=== PATIENT | female | born 1950 | race Caucasian/White ===

== ENCOUNTER 2017-09-03 11:38 | Outpatient (CLI) | payer MEDICARE | END 2017-09-03 11:39 | disposition home or self-care (01) | LOC: BICMAMMO 11:38 | PROVIDERS: ATTEND Family Medicine | DX: Z12.31 Encounter for screening mammogram for malignant neoplasm of breast (principal) | CPT/HCPCS: 77063; 77067 ==

== ENCOUNTER 2018-09-10 09:07 | Outpatient (CLI) | payer MEDICARE ==
--- NOTE | 2018-09-10 09:36 | MMO ---
Bilateral MAMMO Bilat Screen [facility]. CLINICAL HISTORY: Patient is 68 years old and is seen for screening. The patient has no family history of breast cancer. The patient has no personal history of cancer. VIEWS: The views performed were: bilateral craniocaudal with tomosynthesis and bilateral mediolateral oblique with tomosynthesis. FILMS COMPARED: The present examination has been compared to prior imaging studies performed at [facility] on 02/12/2016 and 09/03/2017, and at [facility] on 10/17/2005, 12/14/2008 and 12/12/2010. MAMMOGRAM FINDINGS: There are scattered fibroglandular densities. There are stable benign appearing calcifications seen in both breasts. There are no suspicious masses, suspicious calcifications, or new areas of architectural distortion. IMPRESSION: THERE IS NO MAMMOGRAPHIC EVIDENCE OF MALIGNANCY. A ROUTINE FOLLOW-UP MAMMOGRAM IN 1 YEAR IS RECOMMENDED. THE RESULTS OF THIS EXAM WERE SENT TO THE PATIENT. ACR BI-RADS Category 2 - Benign finding MAMMOGRAPHY NOTE: 1. A negative mammogram report should not delay a biopsy if a dominant of clinically suspicious mass is present. 2. Approximately 10% to 15% of breast cancers are not detected by mammography. 3. Adenosis and dense breasts may obscure an underlying neoplasm.
== END 2018-09-10 09:08 | disposition home or self-care (01) ==
LOC: BICMAMMO 09:07
PROVIDERS: ATTEND Family Medicine
DX: Z12.31 Encounter for screening mammogram for malignant neoplasm of breast (principal)
CPT/HCPCS: 77063; 77067

== ENCOUNTER 2018-11-11 10:33 | Day surgery (SDC) | payer MEDICARE ==
[2018-11-10 12:31] VITALS: BMI 32.1
[~2018-11-11 10:33] MED LIST: Cyclopentolate 1% Opth Drop 2 ML BOT R EYE SCH; Fluorouracil 100 MG, Enoxaparin Sodium 25 MG, EPINEPHrine 0.3 MG, Dextrose 50% 3 ML in ... IRR SCH; Phenylephrine 2.5% Ophth Soln 5 ML BOT R EYE SCH
[2018-11-11] MEDS ORDERED: Phenylephrine 2.5% Ophth Soln 5 ML BOT ONE (11:44)
[2018-11-11] MEDS ORDERED: Cyclopentolate 1% Opth Drop 2 ML BOT ONE (11:44)
[2018-11-11] MEDS ORDERED: PROPOFOL 20 ML ONE (13:15)
--- NOTE | 2018-11-11 20:14 | EKG ---
Test Reason : PREOP Blood Pressure : / mmHG Vent. Rate : 061 BPM Atrial Rate : 061 BPM P-R Int : 158 ms QRS Dur : 072 ms QT Int : 396 ms P-R-T Axes : 059 012 046 degrees QTc Int : 398 ms Normal sinus rhythm Normal ECG When compared with ECG of 12-OCT-2015 12:00, Questionable change in QRS axis Confirmed by FATOUMATA HAND, SReji ([id number]) on 11/11/2018 8:13:51 PM Referred By: CATALINA Confirmed By:DR. Americo HAM MD
--- NOTE | 2018-11-11 22:16 | OP ---
DATE OF PROCEDURE: 11/11/2018 PREOPERATIVE DIAGNOSIS: Macular hole, right eye. POSTOPERATIVE DIAGNOSIS: Macular hole, right eye. PROCEDURE PERFORMED: Pars plana vitrectomy and internal limiting membrane peel, right eye. ANESTHESIA: Local with monitored anesthesia care. PROCEDURE IN DETAIL: The patient was identified in preoperative holding area. Appropriate informed consent for the planned surgical procedure on the right eye had been obtained. The patient was transported to the operative suite, appropriate cardiopulmonary monitoring was established. Local anesthesia obtained using retrobulbar modified Van Lint lid block using 50:50 mixture of 4% lidocaine and 0.75% bupivacaine. The patient was prepped and draped in usual sterile manner for ophthalmic surgery. Right eye lid speculum was placed in the right eye. A 25-gauge trocar was placed through the conjunctiva and sclera superotemporally, inferotemporally, and supranasally. Infusion line was placed inferotemporally. Light pipe and vitreous cutter were inserted into the eye. Core vitrectomy was performed. Posterior hyaloid face was elevated and peeled across the macular surface. Indocyanine green dye was infused on the posterior pole x1 identifying the internal limiting membrane. This was elevated using a membrane scraper along the supratemporal arcade and peeled across the macula using end gripping forceps. Indirect ophthalmoscopy was used to exam the retina 360 degrees. No holes, breaks, or tears were identified. Complete air-fluid exchange was performed with 10 minutes being allowed for fluid to drain posteriorly. A 28% sulfur hexafluoride gas was infused into the eye. Trocars were removed and the eye was noted to retain pressure well. Retrobulbar Kenalog and subconjunctival Ancef were placed. Antibiotic ointment was placed. The eye was patched and shield. The patient was taken to the postoperative care unit in good condition, having suffered no immediate perioperative complications. The patient was instructed to keep patch on, avoid lifting or bending, avoid flat or back positioning, followup appointment with Dr. Larkin. Job ID: [id number]
== END 2018-11-11 15:15 | disposition home or self-care (01) ==
LOC: SDC 10:33
PROVIDERS: ATTEND Ophthalmology Retina Specialist
PROC: 08T43ZZ Resection of Right Vitreous, Percutaneous Approach (ICD-10-PCS; principal; 2018-11-11)
PROC: 08NE3ZZ Release Right Retina, Percutaneous Approach (ICD-10-PCS; 2018-11-11)
DX: H35.341 Macular cyst, hole, or pseudohole, right eye (principal); Z88.6 Allergy status to analgesic agent
CPT/HCPCS: 67025; 93005; 93010; J0171; J1650; J2704; J9190

== ENCOUNTER 2019-02-01 11:06 | Outpatient (CLI) | payer MEDICARE ==
--- NOTE | 2019-02-01 11:24 | SJPRAD ---
PA AND LATERAL VIEWS CHEST: Date: 02/01/19 HISTORY: Cough. FINDINGS: Comparison made with exam of 04/04/16. The heart size is normal. The aorta is tortuous. The lungs are expanded without focal areas of consol idation, pneumothoraces, or pleural effusions. There are degenerative changes of the spine. IMPRESSION: No acute process. POS: OFF
== END 2019-02-01 11:07 | disposition home or self-care (01) ==
LOC: MWLC RAD 11:06
PROVIDERS: ATTEND Family Medicine
DX: R05 Cough (principal)

== ENCOUNTER 2019-02-09 12:47 | Outpatient (CLI) | payer MEDICARE ==
--- NOTE | 2019-02-09 13:22 | RAD ---
EXAM: Chest 2 views: HISTORY: Cough COMPARISON: 02/01/2019 FINDINGS: Heart size:Within normal limits. Lungs:Minimal bilateral increased bronchovascular markings and linear changes bilaterally showing no significant change from prior exam. Atherosclerotic changes of the aorta. No confluent pneumonia, overt edema, pleural effusion, pneumothorax, or other significant acute proce ss. IMPRESSION: Atherosclerosis of the aorta. No acute intrathoracic disease.
[2019-02-09 13:29] LABS: #Basophils 0.1 thou/uL (0.0-0.2); #Eosinphils 0.2 thou/uL (0.0-0.7); #Lymphocytes 0.9 thou/uL (1.20-3.40); #Monocytes 0.7 thou/uL (0.11-0.59); #Neutrophils 4.9 thou/uL (1.40-6.50); %Basophils 0.8 % (0.0-1.0); %Eosinophils 2.9 % (0.0-10.0); %Lymphocytes 12.8 % (21.0-51.0); %Monocytes 10.7 % (0.0-10.0); %Neutrophils 72.8 % (42.0-75.0); Anisocytosis SLIGHT = 6-15 cells (100X) (0-5/hpf); Hypochromia SLIGHT = 6-15 cells (100X) (0-5/hpf); MDiff Complete? YES; Mean Corpuscular HGB CONC 31.6 g/dL (32.0-36.0); Mean Corpuscular Hemoglobin 22.6 pg (27.0-31.0); Mean Corpuscular Volume 71.5 fL (78.0-98.0); Mean Platelet Volume 6.5 fL (7.4-10.4); Microcytosis SLIGHT = 6-15 cells (100X) (0-5/hpf); Platelet Count 285 thou/uL (130-400); Platelet Morphology Comment Appears Adequate; RBC Distribution Width 15.2 % (11.5-14.5); Red Blood Cell (RBC) Count 3.97 mill/uL (4.20-5.40); White Blood Cell (WBC) Count 6.7 thou/uL (4.8-10.8)
[2019-02-09 13:30] LABS: ALT (SGPT) 23 U/L (8-55); AST (SGOT) 25 U/L (5-34); Albumin 3.9 g/dL (3.4-4.8); Alkaline Phosphatase 118 U/L (40-150); Anion Gap 16 mmol/L (10-20); BUN (Urea Nitrogen) 25 mg/dL (9.8-20.1); Bilirubin, Total 0.3 mg/dL (0.2-1.2); Calc. Creatinine Clearance 0 mL/min (70-130); Calcium 9.9 mg/dL (7.8-10.44); Carbon Dioxide 21 mmol/L (23-31); Chloride 104 mmol/L (98-107); Estimated GFR-MDRD 40; Globulin 3.3 g/dL (2.4-3.5); Glucose 104 mg/dL (80-115); Potassium 4.9 mmol/L (3.5-5.1); Protein, Total 7.2 g/dL (6.0-8.3); Sodium 136 mmol/L (136-145)
[2019-02-09 17:18] LABS: Iron 15 ug/dL (50-170); Iron Binding Capacity, Total 268 mcg/dL (265-497)
== END 2019-02-09 12:48 | disposition home or self-care (01) ==
LOC: SCSRAD 12:47
PROVIDERS: ATTEND Family Medicine
DX: R05 Cough (principal); N17.9 Acute kidney failure, unspecified; D64.9 Anemia, unspecified; R53.82 Chronic fatigue, unspecified; E53.8 Deficiency of other specified B group vitamins; I70.0 Atherosclerosis of aorta
CPT/HCPCS: 36415; 71046; 80053; 82607; 83540; 83550; 84443; 85025

== ENCOUNTER → 2019-05-19 | Day surgery (SDC) | payer MEDICARE ==
[2019-05-18 11:20] VITALS: BMI 30.2
[~2019-05-19] MED LIST changes: -Cyclopentolate 1% Opth Drop 2 ML BOT R EYE SCH; -Fluorouracil 100 MG, Enoxaparin Sodium 25 MG, EPINEPHrine 0.3 MG, Dextrose 50% 3 ML in ... IRR SCH; +PROPOFOL 200 MG/20 ML VIAL ONE; -Phenylephrine 2.5% Ophth Soln 5 ML BOT R EYE SCH
--- NOTE | 2019-05-19 12:52 | OP ---
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 PROCEDURES PERFORMED: 1. Esophagogastroduodenoscopy with biopsies. 2. Colonoscopy, diagnostic. INDICATIONS: 1. Anemia. 2. Diarrhea. MEDICATIONS: See Anesthesia record. FINDINGS: After discussion of the risks, benefits, and alternatives of the procedure, informed consent was obtained and witnessed. Pre-endoscopic cardiopulmonary examination was satisfactory. Time-out was performed before sedation was achieved. Sedation was achieved with Anesthesia assistance in the endoscopy unit. A Pentax adult upper endoscope was placed into the oropharynx and passed through the cricopharyngeus under direct visualization. The esophageal mucosa appears normal with a normal-appearing Z-line. There was no evidence of esophageal varices. The endoscope was advanced into the stomach. Forward and retroflexed views of the entire gastric mucosa were obtained. There was no evidence of gastric varices. There is some diffuse gastritis throughout the gastric antrum, body, and fundus characterized by patchy erythema and friability. There are several areas of mild heme staining, though no significant erosive disease or ulcerations. The endoscope was advanced through the pylorus and into the first and second portions of the duodenum, which appeared normal. Biopsies were obtained from the gastric antrum and body to rule out H pylori. The upper endoscope was completely withdrawn and the patient was repositioned. Digital rectal exam was performed, which was unremarkable. A Pentax adult colonoscope was inserted into the anus and passed forward to the ileocolonic anastomosis in the usual fashion. The anastomosis is at 55 cm from the anal verge, it is healthy-appearing. The endoscope was passed into the ileum, and the ileum was examined to a distance of about 20 cm and appeared normal. The colonoscope was slowly withdrawn in a gradual circumferential manner with careful examination of the entire remaining colonic mucosa. The quality of the prep was good. The colonic mucosa appeared normal throughout. There were no polyps or mass lesions. No bleeding lesions visualized. Retroflexion in the rectum demonstrated internal hemorrhoids. The colonoscope was completely withdrawn and the patient allowed to recover. The patient tolerated the procedure well. There were no immediate postprocedure complications. IMPRESSION: 1. Diffuse gastritis, with a few areas of heme staining. Biopsied to rule out Helicobacter pylori. 2. Otherwise normal esophagogastroduodenoscopy. 3. Healthy-appearing ileocolonic anastomosis at 55 cm. 4. Internal hemorrhoids. 5. Otherwise normal colonoscopy. RECOMMENDATIONS: 1. Follow up pathology on the gastric biopsies. 2. Protonix 40 mg daily. 3. Follow up in clinic in about 6 weeks. If the patient's anemia continues to worsen despite iron supplementation, we could consider capsule endoscopy to complete the GI workup for anemia. 4. Recall for surveillance colonoscopy in 5 years. Job ID: [id number]
== END | disposition home or self-care (01) ==
LOC: SDC 13:30
PROVIDERS: ATTEND Internal Medicine
PROC: 0DJD8ZZ Inspection of Lower Intestinal Tract, Via Natural or Artificial Opening Endoscopic (ICD-10-PCS; principal; 2019-05-19)
PROC: 0DB68ZX Excision of Stomach, Via Natural or Artificial Opening Endoscopic, Diagnostic (ICD-10-PCS; 2019-05-19)
DX: K64.8 Other hemorrhoids (principal); D64.9 Anemia, unspecified; K29.70 Gastritis, unspecified, without bleeding; Z88.5 Allergy status to narcotic agent; Z79.82 Long term (current) use of aspirin; Z79.899 Other long term (current) drug therapy; Z94.4 Liver transplant status
CPT/HCPCS: 88305; 88312; J2704

== ENCOUNTER 2020-03-09 10:21 | Outpatient (CLI) | payer MEDICARE | END 2020-03-09 10:22 | disposition home or self-care (01) | LOC: CTENTCT 10:21 | PROVIDERS: ATTEND Specialist | DX: J32.8 Other chronic sinusitis (principal) | CPT/HCPCS: 70486 ==

== ENCOUNTER 2020-05-02 09:14 | Emergency (ER) | payer MEDICARE ==
[2020-05-02 14:45] LABS: SARS-CoV-2 MS2 Positive; SARS-CoV-2 N Gene Negative; SARS-CoV-2 S Gene Negative; SARS-CoV-2 by NAA Not Detected (NotDetected); SARS-CoV-2 orf1ab Negative
== END 2020-05-02 09:44 | disposition home or self-care (01) ==
LOC: ERS 09:14
DX: Z20.828 Contact with and (suspected) exposure to other viral communicable diseases (principal)
CPT/HCPCS: 87635; 99283; U0003